=== PATIENT | male | born 1955 ===

== ENCOUNTER 2024-09-19 10:29 | Inpatient (IN) | payer MEDICARE, OTHER ==
[~2024-09-19] VITALS: Ht 188 cm; Wt 179.0 kg
[2024-09-19 12:04] LABS: BASOPHILS ABSOLUTE AUTO 0.11 K/mm3 (0.00-0.23); BASOPHILS PERCENT AUTO 1 % (0-2); EOSINOPHILS ABSOLUTE AUTO 0.05 K/mm3 (0.00-0.68); EOSINOPHILS PERCENT AUTO 0 % (0-6); Hematocrit 36.2 % (37.0-53.0); Hemoglobin 12.4 g/dL (13.5-17.5); IMMATURE GRAN ABSOLUTE AUTO 0.78 K/mm3 (0.00-0.10); IMMATURE GRAN PERCENT AUTO 4 % (0-1); LYMPHOCYTES ABSOLUTE AUTO 0.31 K/mm3 (0.84-5.20); LYMPHOCYTES PERCENT AUTO 2 % (21-46); MONOCYTES ABSOLUTE AUTO 0.55 K/mm3 (0.16-1.47); MONOCYTES PERCENT AUTO 3 % (4-13); Mean Corpuscular HGB 31.6 pg (26.0-34.0); Mean Corpuscular HGB Conc 34.3 g/dL (31.5-36.5); Mean Corpuscular Volume 92 fL (80-100); Mean Platelet Volume 11.1 fL (9.1-12.4); NEUTROPHILS ABSOLUTE AUTO 19.11 K/mm3 (1.96-9.15); NEUTROPHILS PERCENT AUTO 92 % (41-73); NRBC ABSOLUTE 0.02 K/mm3 (0.00-0.02); NRBC Auto 0.1 /100 WBC (0.0-0.2); Platelet Count 201 K/mm3 (150-400); RDW Coefficient Variation 13.2 % (11.7-14.2); RDW Standard Deviation 44.9 fL (35.1-46.3); Red Blood Cell Count 3.93 M/mm3 (4.30-5.90); White Blood Cell Count 20.91 K/mm3 (4.00-11.30)
[2024-09-19] MEDS ORDERED: Ketorolac Tromethamine 15mg Vial IV ONE (12:30)
[2024-09-19 12:36] LABS: BAND PERCENT MAN 8 % (0-8); BASOPHILS PERCENT MAN 0 % (0-2); EOSINOPHILS PERCENT MAN 0 % (0-6); LYMPHOCYTES PERCENT MAN 1 % (21-46); MONOCYTES ABSOLUTE MAN 0.62 K/mm3 (0.16-1.47); MONOCYTES PERCENT MAN 3 % (4-13); NEUTROPHILS ABSOLUTE MAN 20.07 K/mm3 (1.96-9.15); SEG NEUTROPHILS PERCENT MAN 88 % (41-73); TOTAL CELLS COUNTED 100
[2024-09-19 12:49] LABS: Albumin, Blood 2.4 g/dL (3.4-5.0); Albumin/Globulin Ratio 0.6 (0.8-1.8); Bilirubin, Total 0.6 mg/dL (0.1-1.0); Bun/Creatinine Ratio 28.1 (12.0-20.0); Calcium, Blood 9.6 mg/dL (8.5-10.1); Creatinine, Blood 1.78 mg/dL (0.60-1.20); Globulin, Blood 4.1 g/dL (2.2-4.0); Potassium, Blood 4.9 mmol/L (3.5-5.5); Total Protein, Blood 6.5 g/dL (6.4-8.2)
[2024-09-19] MEDS ORDERED: MOUNJARO15 MG/0.5 SC (13:28)
[2024-09-19] MEDS ORDERED: HUMALOG100 UNIT/1 SC (13:28)
[2024-09-19 13:42] LABS: Base Excess Venous -10.4 mmol/L; Bicarbonate Venous 17.2 mmol/L (24.0-30.0); PCO2 Venous 31.8 mmHg (38-42); pH Blood Venous 7.31 (7.34-7.37)
[2024-09-19] MEDS ORDERED: NS 1,000 ML IV SCH ×3 (14:30→15:55)
[2024-09-19] MEDS ORDERED: CefTRIAXone Sodium 1,000 MG in NS 100 ML IV ONE (14:30)
[2024-09-19] MEDS ORDERED: Insulin Human Regular 100 UNIT in NS 100 ML IV SCH (14:40)
[2024-09-19] MEDS ORDERED: Potassium Chl 20MEQ/Water100ML 100 ML IV SCH (14:40)
[2024-09-19] MEDS ORDERED: VANCOMYCIN HCL IV ONE (14:55)
[2024-09-19] MEDS ORDERED: NS IV ONE (14:55)
[2024-09-19] MEDS ORDERED: Ondansetron HCl 2 MG / ML 2ML Vial IV PRN (15:55)
[2024-09-19] MEDS ORDERED: TraMADol HCl 50 MG Tab PO PRN (15:55)
[2024-09-19] MEDS ORDERED: Ketorolac Tromethamine 30mg Vial IV PRN (16:00)
[2024-09-19 16:10] LABS: Glucose, Blood 501 mg/dL (70-99)
[2024-09-19] MEDS ORDERED: CeFAZolin Sodium 2,000 MG in NS 100 ML IV SCH (17:00)
[2024-09-19 18:11] LABS: Bun/Creatinine Ratio 31.6 (12.0-20.0); Calcium, Blood 9.1 mg/dL (8.5-10.1); Creatinine, Blood 1.74 mg/dL (0.60-1.20); Magnesium, Blood 2.4 mg/dL (1.6-2.4); Phosphorus, Blood 2.5 mg/dL (2.5-4.9); Potassium, Blood 4.1 mmol/L (3.5-5.5)
[2024-09-19 20:00] VITALS: BP 114/61
[2024-09-19 21:00] VITALS: BP 128/76
[2024-09-19 21:32] LABS: Bun/Creatinine Ratio 34.5 (12.0-20.0); Creatinine, Blood 1.65 mg/dL (0.60-1.20); Magnesium, Blood 2.4 mg/dL (1.6-2.4); Phosphorus, Blood 1.5 mg/dL (2.5-4.9)
[2024-09-19 22:00] VITALS: BP 128/78
[2024-09-19 23:00] VITALS: BP 125/67
[2024-09-20] VITALS (22 sets, daily range): BP systolic 97–232; BP diastolic 36–107
[2024-09-20] MEDS ORDERED: Metoprolol Tartrate 1 MG/ML 5 ML VIAL IV ONE
[2024-09-20] MEDS ORDERED: D5W-1/2NS KCl 20mEq 1,000 ML IV SCH
[2024-09-20 01:25] LABS: Base Excess Venous -1.3 mmol/L; Bicarbonate Venous 24.5 mmol/L (24.0-30.0); PCO2 Venous 25.3 mmHg (38-42); pH Blood Venous 7.53 (7.34-7.37)
[2024-09-20 01:33] LABS: Magnesium, Blood 2.3 mg/dL (1.6-2.4)
[2024-09-20 01:49] LABS: Bun/Creatinine Ratio 33.3 (12.0-20.0); Calcium, Blood 8.7 mg/dL (8.5-10.1); Creatinine, Blood 1.77 mg/dL (0.60-1.20); Phosphorus, Blood 0.9 mg/dL (2.5-4.9); Potassium, Blood 4.1 mmol/L (3.5-5.5)
[2024-09-20] MEDS ORDERED: D5W-1/2NS 1,000 ML IV SCH (02:00)
[2024-09-20] MEDS ORDERED: Potassium Phosphate Dibasic 30 MM in Dextrose 5% 500 ML IV ONE (02:00)
[2024-09-20 04:00] LABS: Hematocrit 36.5 % (37.0-53.0); Hemoglobin 12.9 g/dL (13.5-17.5); Mean Corpuscular HGB 31.8 pg (26.0-34.0); Mean Corpuscular HGB Conc 35.3 g/dL (31.5-36.5); Mean Corpuscular Volume 90 fL (80-100); Mean Platelet Volume 10.8 fL (9.1-12.4); NRBC ABSOLUTE 0.07 K/mm3 (0.00-0.02); NRBC Auto 0.3 /100 WBC (0.0-0.2); Platelet Count 179 K/mm3 (150-400); RDW Coefficient Variation 13.4 % (11.7-14.2); RDW Standard Deviation 44.4 fL (35.1-46.3); Red Blood Cell Count 4.06 M/mm3 (4.30-5.90); White Blood Cell Count 21.52 K/mm3 (4.00-11.30)
[2024-09-20] MEDS ORDERED: Ipratropium/Albuterol SulF 2.5-0.5MG/3 ML Amp INH PRN (04:05)
[2024-09-20 04:18] LABS: Albumin, Blood 2.1 g/dL (3.4-5.0); Albumin/Globulin Ratio 0.5 (0.8-1.8); Bilirubin, Total 0.3 mg/dL (0.1-1.0); Bun/Creatinine Ratio 33.7 (12.0-20.0); Calcium, Blood 9.1 mg/dL (8.5-10.1); Creatinine, Blood 1.84 mg/dL (0.60-1.20); Globulin, Blood 4.1 g/dL (2.2-4.0); Potassium, Blood 3.9 mmol/L (3.5-5.5); Total Protein, Blood 6.2 g/dL (6.4-8.2)
[2024-09-20 04:33] LABS: BAND PERCENT MAN 17 % (0-8); BASOPHILS PERCENT MAN 0 % (0-2); EOSINOPHILS PERCENT MAN 0 % (0-6); METAMYELOCYTE ABSOLUTE MAN 0.21 K/mm3 (0.00-0.00); METAMYELOCYTE PERCENT MAN 1 % (0-0); MONOCYTES ABSOLUTE MAN 0.21 K/mm3 (0.16-1.47); MONOCYTES PERCENT MAN 1 % (4-13); MYELOCYTE ABSOLUTE MAN 0.64 K/mm3 (0.00-0.00); MYELOCYTE PERCENT MAN 3 % (0-0); NEUTROPHILS ABSOLUTE MAN 20.44 K/mm3 (1.96-9.15); SEG NEUTROPHILS PERCENT MAN 78 % (41-73); TOTAL CELLS COUNTED 100
[2024-09-20] MEDS ORDERED: Lisinopril 10 MG Tab PO SCH (09:00)
[2024-09-20] MEDS ORDERED: Enoxaparin 40 MG/0.4 ML SYR SC SCH (09:00)
[2024-09-20] MEDS ORDERED: Ketorolac Tromethamine 30mg Vial IV PRN (09:30)
[2024-09-20 10:23] LABS: Anion Gap 14 mmol/L (3-11); Blood Urea Nitrogen 56 mg/dL (8-24); Bun/Creatinine Ratio 32.6 (12.0-20.0); C-REACTIVE PROTEIN, EXT RANGE >19.000 mg/dL (0.000-0.300); CO2, Blood 21 mmol/L (21-32); Calcium, Blood 8.6 mg/dL (8.5-10.1); Chloride, Blood 95 mmol/L (98-108); Creatinine, Blood 1.72 mg/dL (0.60-1.20); Glomerular Filtration Rate 43 (60-); Glucose, Blood 195 mg/dL (70-99); Potassium, Blood 4.2 mmol/L (3.5-5.5); Sodium, Blood 126 mmol/L (136-145)
[2024-09-20 10:59] LABS: Anti-Xa UFH, PHA Monitoring 0.1 IU/mL; International Normalized Ratio 1.07; Prothrombin Time Results 11.4 Sec (9.7-11.5)
[2024-09-20] MEDS ORDERED: OxyCODONE HCL 5 MG TAB PO PRN (11:00)
[2024-09-20] MEDS ORDERED: FentaNYL Citrate 50 MCG/ML 2 ML Injection IV PRN (11:00)
[2024-09-20] MEDS ORDERED: D5W-LR 1,000 ML IV SCH (11:00)
[2024-09-20] MEDS ORDERED: Heparin Sodium,Porcine/0.5 NS 500 ML IV SCH (11:10)
[2024-09-20] MEDS ORDERED: TRIA50 PO (13:22)
[2024-09-20] MEDS ORDERED: FENO48 PO (13:23)
[2024-09-20] MEDS ORDERED: METF500 PO (13:24)
[2024-09-20] MEDS ORDERED: Crestor40 MG PO (13:25)
[2024-09-20] MEDS ORDERED: AMLO10 PO (13:25)
[2024-09-20] MEDS ORDERED: LISI20 PO (13:28)
[2024-09-20] MEDS ORDERED: EUTHYROX125 MCG PO (13:29)
[2024-09-20] MEDS ORDERED: ASPI325 PO (13:29)
[2024-09-20] MEDS ORDERED: MULTI-VITAMIN1 EAC2 PO (13:31)
[2024-09-20] MEDS ORDERED: GLUCHON PO (13:34)
[2024-09-20] MEDS ORDERED: FISH OIL 1,4001 EAC2 PO (13:34)
[2024-09-20] MEDS ORDERED: DERMACINRX FOL PO (13:35)
[2024-09-20 16:36] LABS: Bun/Creatinine Ratio 30.8 (12.0-20.0); Calcium, Blood 9.5 mg/dL (8.5-10.1); Creatinine, Blood 1.82 mg/dL (0.60-1.20); Magnesium, Blood 2.2 mg/dL (1.6-2.4); Phosphorus, Blood 1.5 mg/dL (2.5-4.9); Potassium, Blood 3.8 mmol/L (3.5-5.5)
[2024-09-20] MEDS ORDERED: Lactobacil 2-S.Thermo-Bifido 1 1 Cap PO SCH (21:00)
[2024-09-20 23:20] LABS: Bun/Creatinine Ratio 34.1 (12.0-20.0); Creatinine, Blood 1.76 mg/dL (0.60-1.20); Potassium, Blood 3.4 mmol/L (3.5-5.5)
[2024-09-20] MEDS ORDERED: Potassium Chloride 40 MEQ in NS 250 ML IV ONE (23:25)
[2024-09-21] VITALS (29 sets, daily range): BP systolic 85–134; BP diastolic 44–101
[2024-09-21 01:16] LABS: RDW Coefficient Variation 14.2 % (11.7-14.2); Red Blood Cell Count 3.77 M/mm3 (4.30-5.90)
[2024-09-21 01:26] LABS: Hematocrit 33.9 % (37.0-53.0); Hemoglobin 11.7 g/dL (13.5-17.5); Mean Corpuscular HGB Conc 34.5 g/dL (31.5-36.5); Mean Corpuscular Volume 90 fL (80-100); Mean Platelet Volume 10.5 fL (9.1-12.4); NRBC ABSOLUTE 0.07 K/mm3 (0.00-0.02); NRBC Auto 0.3 /100 WBC (0.0-0.2); Platelet Count 147 K/mm3 (150-400); RDW Standard Deviation 47.4 fL (35.1-46.3); White Blood Cell Count 22.66 K/mm3 (4.00-11.30)
[2024-09-21 01:37] LABS: Albumin, Blood 1.6 g/dL (3.4-5.0); Albumin/Globulin Ratio 0.4 (0.8-1.8); Bilirubin, Total 0.3 mg/dL (0.1-1.0); Bun/Creatinine Ratio 33.9 (12.0-20.0); Creatinine, Blood 1.65 mg/dL (0.60-1.20); Globulin, Blood 3.8 g/dL (2.2-4.0); Potassium, Blood 3.6 mmol/L (3.5-5.5); Total Protein, Blood 5.4 g/dL (6.4-8.2)
[2024-09-21] MEDS ORDERED: Clarify Drug Order XX ONE (01:45)
[2024-09-21 01:52] LABS: BAND PERCENT MAN 12 % (0-8); BASOPHILS PERCENT MAN 0 % (0-2); EOSINOPHILS PERCENT MAN 0 % (0-6); LYMPHOCYTES ABSOLUTE MAN 0.45 K/mm3 (0.84-5.20); LYMPHOCYTES PERCENT MAN 2 % (21-46); METAMYELOCYTE ABSOLUTE MAN 0.45 K/mm3 (0.00-0.00); METAMYELOCYTE PERCENT MAN 2 % (0-0); MONOCYTES ABSOLUTE MAN 0.22 K/mm3 (0.16-1.47); MONOCYTES PERCENT MAN 1 % (4-13); MYELOCYTE PERCENT MAN 4 % (0-0); NEUTROPHILS ABSOLUTE MAN 20.62 K/mm3 (1.96-9.15); SEG NEUTROPHILS PERCENT MAN 79 % (41-73); TOTAL CELLS COUNTED 100
[2024-09-21 05:55] LABS: Bun/Creatinine Ratio 34.8 (12.0-20.0); Calcium, Blood 8.2 mg/dL (8.5-10.1); Creatinine, Blood 1.64 mg/dL (0.60-1.20); Potassium, Blood 3.6 mmol/L (3.5-5.5)
[2024-09-21] MEDS ORDERED: Potassium Chl 20MEQ/Water100ML 100 ML IV SCH (06:10)
[2024-09-21] MEDS ORDERED: Insulin Glargine-Yfgn 100 Unit/mL 3 ML SYR SC SCH (08:00)
[2024-09-21] MEDS ORDERED: Vancomycin HCL 2,500 MG in NS 500 ML IV ONE (08:10)
[2024-09-21] MEDS ORDERED: Sodium Bicarbonate 650 MG Tab PO SCH (09:00)
[2024-09-21] MEDS ORDERED: Mupirocin Calcium Oint 1 GM SCH (09:00)
[2024-09-21] MEDS ORDERED: Furosemide 10 MG/ML 4ML Vial IV SCH ×2 (09:00→18:00)
[2024-09-21] MEDS ORDERED: Insulin Regular 100 UNIT/ML 10ML Vial SC SCH (11:30)
[2024-09-21] MEDS ORDERED: OxyCODONE HCL 5 MG TAB PO PRN (11:45)
[2024-09-21] MEDS ORDERED: FentaNYL Citrate 50 MCG/ML 2 ML Injection IV PRN (11:45)
[2024-09-21 13:09] LABS: Bun/Creatinine Ratio 39.6 (12.0-20.0); Creatinine, Blood 1.54 mg/dL (0.60-1.20); Potassium, Blood 4.2 mmol/L (3.5-5.5)
[2024-09-21 17:00] LABS: Bun/Creatinine Ratio 36.3 (12.0-20.0); Calcium, Blood 7.8 mg/dL (8.5-10.1); Creatinine, Blood 1.71 mg/dL (0.60-1.20); Potassium, Blood 4.3 mmol/L (3.5-5.5)
[2024-09-21] MEDS ORDERED: D5W-LR 1,000 ML IV SCH (17:15)
[2024-09-21] MEDS ORDERED: Insulin Human Regular 100 UNIT in NS 100 ML IV SCH (17:25)
[2024-09-21] MEDS ORDERED: Albumin (Human) 25gm/100ml 100 ML IV SCH ×2 (18:00)
[2024-09-21 20:50] LABS: Beta-hydroxybutyrate 8.5 mg/dL (0.2-2.8); Bun/Creatinine Ratio 38.9 (12.0-20.0); Calcium, Blood 8.1 mg/dL (8.5-10.1); Creatinine, Blood 1.75 mg/dL (0.60-1.20); Magnesium, Blood 2.2 mg/dL (1.6-2.4); Phosphorus, Blood 3.1 mg/dL (2.5-4.9)
[2024-09-22] VITALS (78 sets, daily range): BP systolic 84–191; BP diastolic 43–107
[2024-09-22 00:42] LABS: Bun/Creatinine Ratio 38.4 (12.0-20.0); Calcium, Blood 7.9 mg/dL (8.5-10.1); Creatinine, Blood 1.85 mg/dL (0.60-1.20); Potassium, Blood 3.8 mmol/L (3.5-5.5)
[2024-09-22] MEDS ORDERED: Potassium Chloride 40 MEQ in NS 250 ML IV ONE (01:25)
[2024-09-22 03:43] LABS: Hemoglobin 10.6 g/dL (13.5-17.5); Mean Platelet Volume 10.8 fL (9.1-12.4); Platelet Count 170 K/mm3 (150-400)
[2024-09-22 04:03] LABS: Bun/Creatinine Ratio 39.7 (12.0-20.0); Creatinine, Blood 1.79 mg/dL (0.60-1.20); Magnesium, Blood 2.2 mg/dL (1.6-2.4); Phosphorus, Blood 2.6 mg/dL (2.5-4.9); Potassium, Blood 3.8 mmol/L (3.5-5.5)
[2024-09-22] MEDS ORDERED: Dose Adjust by Pharmacy XX STA ×3 (04:47→19:41)
[2024-09-22] MEDS ORDERED: Potassium Chl 20MEQ/Water100ML 100 ML IV SCH (04:50)
[2024-09-22 08:43] LABS: Calcium, Blood 8.2 mg/dL (8.5-10.1); Creatinine, Blood 1.79 mg/dL (0.60-1.20); Potassium, Blood 3.9 mmol/L (3.5-5.5)
[2024-09-22] MEDS ORDERED: Vancomycin HCL 1,750 MG in NS 500 ML IV SCH (09:00)
[2024-09-22] MEDS ORDERED: HYDROmorphone HCl/Pf 1MG SYR IV PRN (09:20)
[2024-09-22] MEDS ORDERED: Cefepime HCl 2,000 MG in NS 100 ML IV SCH (09:24)
[2024-09-22 11:59] LABS: Bun/Creatinine Ratio 40.5 (12.0-20.0); Calcium, Blood 8.3 mg/dL (8.5-10.1); Creatinine, Blood 1.68 mg/dL (0.60-1.20); Potassium, Blood 3.9 mmol/L (3.5-5.5)
[2024-09-22] MEDS ORDERED: Metolazone 2.5 MG Tab PO ONE (14:00)
[2024-09-22 17:24] LABS: Bun/Creatinine Ratio 40.4 (12.0-20.0); Calcium, Blood 8.2 mg/dL (8.5-10.1); Creatinine, Blood 1.71 mg/dL (0.60-1.20); Potassium, Blood 4.1 mmol/L (3.5-5.5)
[2024-09-22 17:40] LABS: Source, Urine Clean Catch
[2024-09-22 17:47] LABS: Appearance, Urine Clear (Clear); Bilirubin, Urine Neg (Neg); Blood, Urine 3+ (Neg); Glucose Qualitative, Urine Neg (Neg); Ketones, Urine Neg (Neg); Leukocyte Esterase, Urine Neg (Neg); Nitrite, Urine Neg (Neg); Protein, Urine Neg (Neg); Urobilinogen, Urine NORM (Normal)
[2024-09-22 17:57] LABS: Color, Urine Pale Yellow (P-Yellow)
[2024-09-22 18:00] LABS: White Blood Cells, Urine 0-2 /hpf (0-5)
[2024-09-22] MEDS ORDERED: Metolazone 2.5 MG Tab PO SCH (18:00)
[2024-09-22 18:01] LABS: Bacteria Few /hpf; Squamous Epithelial Cells Few /hpf (Few)
[2024-09-22 19:45] LABS: Bun/Creatinine Ratio 38.1 (12.0-20.0); Calcium, Blood 8.3 mg/dL (8.5-10.1); Creatinine, Blood 1.68 mg/dL (0.60-1.20); Potassium, Blood 3.9 mmol/L (3.5-5.5)
[2024-09-23] VITALS (26 sets, daily range): BP systolic 105–172; BP diastolic 50–140
[2024-09-23 00:34] LABS: Bun/Creatinine Ratio 44.7 (12.0-20.0); Calcium, Blood 8.1 mg/dL (8.5-10.1); Creatinine, Blood 1.59 mg/dL (0.60-1.20); Potassium, Blood 3.7 mmol/L (3.5-5.5)
[2024-09-23] MEDS ORDERED: Potassium Chloride 60 MEQ IV SCH (01:50)
[2024-09-23] MEDS ORDERED: Potassium Chl 20MEQ/Water100ML 100 ML IV SCH (02:00)
[2024-09-23] MEDS ORDERED: Dose Adjust by Pharmacy XX STA ×4 (02:49→23:34)
[2024-09-23 05:48] LABS: Hematocrit 31.5 % (37.0-53.0); Hemoglobin 10.8 g/dL (13.5-17.5)
[2024-09-23 06:13] LABS: Bun/Creatinine Ratio 42.7 (12.0-20.0); Calcium, Blood 8.2 mg/dL (8.5-10.1); Creatinine, Blood 1.57 mg/dL (0.60-1.20); Magnesium, Blood 2.3 mg/dL (1.6-2.4); Potassium, Blood 3.9 mmol/L (3.5-5.5)
[2024-09-23] MEDS ORDERED: D5W-LR 1,000 ML IV SCH (07:10)
[2024-09-23] MEDS ORDERED: Insulin Human Lispro 100 Units/ML 3ML Syringe SC SCH (07:30)
[2024-09-23] MEDS ORDERED: HYDROmorphone HCl/Pf 1MG SYR IV PRN (08:55)
[2024-09-23] MEDS ORDERED: Metolazone 5 MG Tab PO SCH (09:00)
[2024-09-23] MEDS ORDERED: Bumetanide 0.25 MG/ML 4ML ViaL IV SCH (09:00)
[2024-09-23 11:05] LABS: Base Excess Venous -9.1 mmol/L; Bicarbonate Venous 17.8 mmol/L (24.0-30.0); PCO2 Venous 33.3 mmHg (38-42); pH Blood Venous 7.32 (7.34-7.37)
[2024-09-23 11:13] LABS: Hematocrit 30.3 % (37.0-53.0); Hemoglobin 10.1 g/dL (13.5-17.5); Mean Corpuscular HGB 30.5 pg (26.0-34.0); Mean Corpuscular HGB Conc 33.3 g/dL (31.5-36.5); Mean Corpuscular Volume 92 fL (80-100); Mean Platelet Volume 11.2 fL (9.1-12.4); NRBC ABSOLUTE 0.06 K/mm3 (0.00-0.02); NRBC Auto 0.2 /100 WBC (0.0-0.2); Platelet Count 168 K/mm3 (150-400); RDW Coefficient Variation 15.5 % (11.7-14.2); RDW Standard Deviation 51.6 fL (35.1-46.3); Red Blood Cell Count 3.31 M/mm3 (4.30-5.90); White Blood Cell Count 37.22 K/mm3 (4.00-11.30)
[2024-09-23 11:14] LABS: BASOPHILS ABSOLUTE AUTO 0.04 K/mm3 (0.00-0.23); BASOPHILS PERCENT AUTO 0 % (0-2); EOSINOPHILS ABSOLUTE AUTO 0.45 K/mm3 (0.00-0.68); EOSINOPHILS PERCENT AUTO 1 % (0-6); IMMATURE GRAN ABSOLUTE AUTO 7.39 K/mm3 (0.00-0.10); IMMATURE GRAN PERCENT AUTO 20 % (0-1); LYMPHOCYTES ABSOLUTE AUTO 2.07 K/mm3 (0.84-5.20); LYMPHOCYTES PERCENT AUTO 6 % (21-46); MONOCYTES ABSOLUTE AUTO 1.01 K/mm3 (0.16-1.47); MONOCYTES PERCENT AUTO 3 % (4-13); NEUTROPHILS ABSOLUTE AUTO 26.26 K/mm3 (1.96-9.15); NEUTROPHILS PERCENT AUTO 71 % (41-73)
[2024-09-23 11:21] LABS: Bun/Creatinine Ratio 46.2 (12.0-20.0); Calcium, Blood 7.7 mg/dL (8.5-10.1); Creatinine, Blood 1.43 mg/dL (0.60-1.20); Magnesium, Blood 1.9 mg/dL (1.6-2.4)
[2024-09-23 11:52] LABS: BAND PERCENT MAN 3 % (0-8); BASOPHILS PERCENT MAN 0 % (0-2); EOSINOPHILS ABSOLUTE MAN 0.74 K/mm3 (0.00-0.68); EOSINOPHILS PERCENT MAN 2 % (0-6); LYMPHOCYTES ABSOLUTE MAN 1.48 K/mm3 (0.84-5.20); LYMPHOCYTES PERCENT MAN 4 % (21-46); METAMYELOCYTE ABSOLUTE MAN 2.23 K/mm3 (0.00-0.00); METAMYELOCYTE PERCENT MAN 6 % (0-0); MONOCYTES ABSOLUTE MAN 1.11 K/mm3 (0.16-1.47); MONOCYTES PERCENT MAN 3 % (4-13); MYELOCYTE ABSOLUTE MAN 1.86 K/mm3 (0.00-0.00); MYELOCYTE PERCENT MAN 5 % (0-0); NEUTROPHILS ABSOLUTE MAN 29.77 K/mm3 (1.96-9.15); SEG NEUTROPHILS PERCENT MAN 77 % (41-73); TOTAL CELLS COUNTED 100
[2024-09-23] MEDS ORDERED: HYDROcodone 7.5-APAP 325 TAB PO SCH (12:00)
[2024-09-23 16:20] LABS: Bun/Creatinine Ratio 41.1 (12.0-20.0); Calcium, Blood 8.2 mg/dL (8.5-10.1); Creatinine, Blood 1.58 mg/dL (0.60-1.20); Potassium, Blood 4.3 mmol/L (3.5-5.5)
[2024-09-23 16:21] LABS: C-REACTIVE PROTEIN, EXT RANGE 11.2 mg/dL (0.000-0.300)
[2024-09-23 16:35] LABS: D-Dimer, Quantitative 2.23 mg/L FEU (0.00-0.52); International Normalized Ratio 1.33; Prothrombin Time Results 13.9 Sec (9.7-11.5)
[2024-09-23] MEDS ORDERED: Meropenem 1,000 MG in NS 100 ML IV SCH (18:00)
[2024-09-23] MEDS ORDERED: Insulin Glargine-Yfgn 100 Unit/mL 3 ML SYR SC SCH (18:00)
[2024-09-23 20:40] LABS: Bun/Creatinine Ratio 39.6 (12.0-20.0); Creatinine, Blood 1.64 mg/dL (0.60-1.20); Potassium, Blood 3.8 mmol/L (3.5-5.5)
[2024-09-23 22:53] LABS: Bun/Creatinine Ratio 43.8 (12.0-20.0); Calcium, Blood 7.9 mg/dL (8.5-10.1); Creatinine, Blood 1.62 mg/dL (0.60-1.20); Potassium, Blood 3.8 mmol/L (3.5-5.5)
[2024-09-24] VITALS (13 sets, daily range): BP systolic 111–158; BP diastolic 54–87
[2024-09-24] MEDS ORDERED: Insulin Glargine-Yfgn 100 Unit/mL 3 ML SYR SC ONE (00:10)
[2024-09-24 03:19] LABS: Base Excess Venous -2.9 mmol/L; Bicarbonate Venous 22.6 mmol/L (24.0-30.0); PCO2 Venous 31.8 mmHg (38-42); pH Blood Venous 7.44 (7.34-7.37)
[2024-09-24 03:23] LABS: Hematocrit 30.3 % (37.0-53.0); Hemoglobin 10.4 g/dL (13.5-17.5); Mean Corpuscular HGB 31.1 pg (26.0-34.0); Mean Corpuscular HGB Conc 34.3 g/dL (31.5-36.5); Mean Corpuscular Volume 91 fL (80-100); Mean Platelet Volume 10.7 fL (9.1-12.4); NRBC ABSOLUTE 0.05 K/mm3 (0.00-0.02); NRBC Auto 0.1 /100 WBC (0.0-0.2); Platelet Count 223 K/mm3 (150-400); RDW Coefficient Variation 15.3 % (11.7-14.2); RDW Standard Deviation 50.4 fL (35.1-46.3); Red Blood Cell Count 3.34 M/mm3 (4.30-5.90); White Blood Cell Count 41.94 K/mm3 (4.00-11.30)
[2024-09-24 03:44] LABS: Albumin, Blood 2.1 g/dL (3.4-5.0); Albumin/Globulin Ratio 0.6 (0.8-1.8); Bilirubin, Total 0.7 mg/dL (0.1-1.0); Bun/Creatinine Ratio 46.5 (12.0-20.0); Calcium, Blood 7.9 mg/dL (8.5-10.1); Creatinine, Blood 1.55 mg/dL (0.60-1.20); Globulin, Blood 3.7 g/dL (2.2-4.0); Magnesium, Blood 1.8 mg/dL (1.6-2.4); Potassium, Blood 3.9 mmol/L (3.5-5.5); Total Protein, Blood 5.8 g/dL (6.4-8.2)
[2024-09-24 03:52] LABS: BAND PERCENT MAN 12 % (0-8); BASOPHILS ABSOLUTE MAN 0.41 K/mm3 (0.00-0.23); BASOPHILS PERCENT MAN 1 % (0-2); EOSINOPHILS ABSOLUTE MAN 0.41 K/mm3 (0.00-0.68); EOSINOPHILS PERCENT MAN 1 % (0-6); LYMPHOCYTES ABSOLUTE MAN 2.09 K/mm3 (0.84-5.20); LYMPHOCYTES PERCENT MAN 5 % (21-46); METAMYELOCYTE ABSOLUTE MAN 2.93 K/mm3 (0.00-0.00); METAMYELOCYTE PERCENT MAN 7 % (0-0); MONOCYTES ABSOLUTE MAN 1.25 K/mm3 (0.16-1.47); MONOCYTES PERCENT MAN 3 % (4-13); MYELOCYTE ABSOLUTE MAN 1.25 K/mm3 (0.00-0.00); MYELOCYTE PERCENT MAN 3 % (0-0); NEUTROPHILS ABSOLUTE MAN 33.55 K/mm3 (1.96-9.15); SEG NEUTROPHILS PERCENT MAN 68 % (41-73); TOTAL CELLS COUNTED 100
[2024-09-24] MEDS ORDERED: HydrALAZINE HCl 20 MG / ML 1ML Vial IV PRN (07:35)
[2024-09-24 08:35] LABS: Vancomycin, Trough 18.2 ug/mL (5.0-10.0)
[2024-09-24] MEDS ORDERED: Insulin Glargine-Yfgn 100 Unit/mL 3 ML SYR SC SCH (09:00)
[2024-09-24] MEDS ORDERED: Sodium Bicarbonate 650 MG Tab PO SCH (09:00)
[2024-09-24 10:36] LABS: Bun/Creatinine Ratio 49.4 (12.0-20.0); Calcium, Blood 7.6 mg/dL (8.5-10.1); Creatinine, Blood 1.6 mg/dL (0.60-1.20); Potassium, Blood 3.9 mmol/L (3.5-5.5)
[2024-09-24] MEDS ORDERED: Dose Adjust by Pharmacy XX STA (12:44)
[2024-09-24 14:13] LABS: Hematocrit 29.2 % (37.0-53.0); Hemoglobin 10.1 g/dL (13.5-17.5); Mean Corpuscular HGB 30.9 pg (26.0-34.0); Mean Corpuscular HGB Conc 34.6 g/dL (31.5-36.5); Mean Corpuscular Volume 89 fL (80-100); Mean Platelet Volume 10.7 fL (9.1-12.4); NRBC ABSOLUTE 0.04 K/mm3 (0.00-0.02); NRBC Auto 0.1 /100 WBC (0.0-0.2); Platelet Count 257 K/mm3 (150-400); RDW Standard Deviation 49.2 fL (35.1-46.3); Red Blood Cell Count 3.27 M/mm3 (4.30-5.90); White Blood Cell Count 38.22 K/mm3 (4.00-11.30)
[2024-09-24 14:33] LABS: Bun/Creatinine Ratio 48.3 (12.0-20.0); Calcium, Blood 7.9 mg/dL (8.5-10.1); Creatinine, Blood 1.51 mg/dL (0.60-1.20); Potassium, Blood 3.4 mmol/L (3.5-5.5)
[2024-09-24] MEDS ORDERED: Potassium Chloride 20 MEQ TabCR PO ONE (15:00)
[2024-09-24] MEDS ORDERED: Insulin Regular 100 UNIT/ML 10ML Vial SC SCH (16:30)
[2024-09-24] MEDS ORDERED: Insulin Regular 100 UNIT/ML 10ML Vial SC ONE (16:47)
[2024-09-25] VITALS (21 sets, daily range): BP systolic 93–136; BP diastolic 44–106
[2024-09-25 04:28] LABS: Hemoglobin 9.4 g/dL (13.5-17.5); Mean Corpuscular HGB 31.4 pg (26.0-34.0); Mean Corpuscular HGB Conc 34.8 g/dL (31.5-36.5); Mean Corpuscular Volume 90 fL (80-100); NRBC ABSOLUTE 0.07 K/mm3 (0.00-0.02); NRBC Auto 0.2 /100 WBC (0.0-0.2); Platelet Count 294 K/mm3 (150-400); RDW Standard Deviation 49.1 fL (35.1-46.3); Red Blood Cell Count 2.99 M/mm3 (4.30-5.90); White Blood Cell Count 42.29 K/mm3 (4.00-11.30)
[2024-09-25 04:52] LABS: Albumin, Blood 1.8 g/dL (3.4-5.0); Albumin/Globulin Ratio 0.5 (0.8-1.8); Bilirubin, Total 0.6 mg/dL (0.1-1.0); Bun/Creatinine Ratio 53.6 (12.0-20.0); Calcium, Blood 7.6 mg/dL (8.5-10.1); Creatinine, Blood 1.68 mg/dL (0.60-1.20); Globulin, Blood 3.9 g/dL (2.2-4.0); Magnesium, Blood 1.7 mg/dL (1.6-2.4); Phosphorus, Blood 3.3 mg/dL (2.5-4.9); Potassium, Blood 3.7 mmol/L (3.5-5.5); Total Protein, Blood 5.7 g/dL (6.4-8.2)
[2024-09-25 05:19] LABS: BAND PERCENT MAN 16 % (0-8); BASOPHILS ABSOLUTE MAN 0.42 K/mm3 (0.00-0.23); BASOPHILS PERCENT MAN 1 % (0-2); EOSINOPHILS PERCENT MAN 0 % (0-6); LYMPHOCYTES ABSOLUTE MAN 1.26 K/mm3 (0.84-5.20); LYMPHOCYTES PERCENT MAN 3 % (21-46); METAMYELOCYTE ABSOLUTE MAN 0.84 K/mm3 (0.00-0.00); METAMYELOCYTE PERCENT MAN 2 % (0-0); MONOCYTES ABSOLUTE MAN 2.11 K/mm3 (0.16-1.47); MONOCYTES PERCENT MAN 5 % (4-13); MYELOCYTE ABSOLUTE MAN 0.42 K/mm3 (0.00-0.00); MYELOCYTE PERCENT MAN 1 % (0-0); NEUTROPHILS ABSOLUTE MAN 37.21 K/mm3 (1.96-9.15); SEG NEUTROPHILS PERCENT MAN 72 % (41-73); TOTAL CELLS COUNTED 100
[2024-09-25] MEDS ORDERED: Dose Adjust by Pharmacy XX STA (05:22)
[2024-09-25] MEDS ORDERED: Mag Sulfate 1 GM/D5% 100ML 100 ML IV STA ×2 (07:46→13:54)
[2024-09-25] MEDS ORDERED: Bumetanide 0.25 MG/ML 4ML ViaL IV SCH (09:00)
[2024-09-25] MEDS ORDERED: Insulin Glargine-Yfgn 100 Unit/mL 3 ML SYR SC SCH (09:00)
[2024-09-25] MEDS ORDERED: Furosemide 10 MG/ML 4ML Vial IV SCH (09:00)
[2024-09-25] MEDS ORDERED: Alteplase Recombinant 2 MG / Vial IV ONE (09:25)
[2024-09-25 13:29] LABS: Bun/Creatinine Ratio 62.3 (12.0-20.0); Calcium, Blood 7.5 mg/dL (8.5-10.1); Creatinine, Blood 1.62 mg/dL (0.60-1.20); Potassium, Blood 3.6 mmol/L (3.5-5.5)
[2024-09-25 17:29] LABS: Calcium, Blood 7.7 mg/dL (8.5-10.1); Creatinine, Blood 1.64 mg/dL (0.60-1.20); Potassium, Blood 3.6 mmol/L (3.5-5.5)
[2024-09-25] MEDS ORDERED: Insulin Human Lispro 100 Units/ML 3ML Syringe SC SCH (17:30)
[2024-09-26] VITALS (22 sets, daily range): BP systolic 98–161; BP diastolic 52–120
[2024-09-26 04:40] LABS: Base Excess Venous 3.6 mmol/L; Bicarbonate Venous 26.9 mmol/L (24.0-30.0); PCO2 Venous 42.2 mmHg (38-42); pH Blood Venous 7.43 (7.34-7.37)
[2024-09-26 04:53] LABS: Hematocrit 24.8 % (37.0-53.0); Hemoglobin 8.5 g/dL (13.5-17.5); Mean Corpuscular HGB Conc 34.3 g/dL (31.5-36.5); Mean Corpuscular Volume 91 fL (80-100); Mean Platelet Volume 10.4 fL (9.1-12.4); NRBC ABSOLUTE 0.14 K/mm3 (0.00-0.02); NRBC Auto 0.4 /100 WBC (0.0-0.2); Platelet Count 341 K/mm3 (150-400); RDW Coefficient Variation 15.2 % (11.7-14.2); RDW Standard Deviation 49.6 fL (35.1-46.3); Red Blood Cell Count 2.74 M/mm3 (4.30-5.90); White Blood Cell Count 37.65 K/mm3 (4.00-11.30)
[2024-09-26 05:14] LABS: BAND PERCENT MAN 13 % (0-8); BASOPHILS PERCENT MAN 0 % (0-2); EOSINOPHILS PERCENT MAN 0 % (0-6); LYMPHOCYTES ABSOLUTE MAN 1.12 K/mm3 (0.84-5.20); LYMPHOCYTES PERCENT MAN 3 % (21-46); METAMYELOCYTE PERCENT MAN 4 % (0-0); MONOCYTES PERCENT MAN 4 % (4-13); MYELOCYTE ABSOLUTE MAN 1.12 K/mm3 (0.00-0.00); MYELOCYTE PERCENT MAN 3 % (0-0); NEUTROPHILS ABSOLUTE MAN 32.37 K/mm3 (1.96-9.15); SEG NEUTROPHILS PERCENT MAN 73 % (41-73); TOTAL CELLS COUNTED 100
[2024-09-26 05:16] LABS: Albumin, Blood 1.8 g/dL (3.4-5.0); Albumin/Globulin Ratio 0.5 (0.8-1.8); Bilirubin, Total 0.4 mg/dL (0.1-1.0); Bun/Creatinine Ratio 62.7 (12.0-20.0); Calcium, Blood 7.6 mg/dL (8.5-10.1); Creatinine, Blood 1.61 mg/dL (0.60-1.20); Globulin, Blood 3.9 g/dL (2.2-4.0); Phosphorus, Blood 3.8 mg/dL (2.5-4.9); Potassium, Blood 3.4 mmol/L (3.5-5.5); Total Protein, Blood 5.7 g/dL (6.4-8.2)
[2024-09-26] MEDS ORDERED: Potassium Chloride 40 MEQ in NS 250 ML IV ONE (06:00)
[2024-09-26 08:42] LABS: Vancomycin, Trough 22.3 ug/mL (5.0-10.0)
[2024-09-26] MEDS ORDERED: Metolazone 2.5 MG Tab PO SCH (09:00)
[2024-09-26] MEDS ORDERED: Bumetanide 0.25 MG/ML 4ML ViaL IV SCH (09:00)
[2024-09-26 11:46] LABS: Base Excess Venous 1.5 mmol/L; Bicarbonate Venous 25.6 mmol/L (24.0-30.0); Hematocrit 24.7 % (37.0-53.0); Hemoglobin 8.5 g/dL (13.5-17.5); PCO2 Venous 43.8 mmHg (38-42); pH Blood Venous 7.39 (7.34-7.37)
[2024-09-26 12:08] LABS: C-REACTIVE PROTEIN, EXT RANGE 6.05 mg/dL (0.000-0.300); Calcium, Blood 7.7 mg/dL (8.5-10.1); Creatinine, Blood 1.54 mg/dL (0.60-1.20); Potassium, Blood 3.7 mmol/L (3.5-5.5)
[2024-09-26] MEDS ORDERED: Vancomycin HCL 2,000 MG in NS 500 ML IV SCH (16:00)
[2024-09-26 17:05] LABS: Bun/Creatinine Ratio 66.7 (12.0-20.0); Calcium, Blood 6.1 mg/dL (8.5-10.1); Creatinine, Blood 1.23 mg/dL (0.60-1.20)
[2024-09-26] MEDS ORDERED: Potassium Chloride 20 MEQ TabCR PO ONE (17:55)
[2024-09-26] MEDS ORDERED: Potassium Chloride 20 MEQ TabCR PO SCH (19:00)
[2024-09-27] VITALS (12 sets, daily range): BP systolic 97–162; BP diastolic 54–139
[2024-09-27 04:34] LABS: Hematocrit 24.5 % (37.0-53.0); Hemoglobin 8.2 g/dL (13.5-17.5); Mean Corpuscular HGB 30.6 pg (26.0-34.0); Mean Corpuscular HGB Conc 33.5 g/dL (31.5-36.5); Mean Corpuscular Volume 91 fL (80-100); Mean Platelet Volume 10.4 fL (9.1-12.4); NRBC ABSOLUTE 0.21 K/mm3 (0.00-0.02); NRBC Auto 0.7 /100 WBC (0.0-0.2); Platelet Count 382 K/mm3 (150-400); RDW Coefficient Variation 15.6 % (11.7-14.2); RDW Standard Deviation 51.4 fL (35.1-46.3); Red Blood Cell Count 2.68 M/mm3 (4.30-5.90); White Blood Cell Count 29.39 K/mm3 (4.00-11.30)
[2024-09-27] MEDS ORDERED: Dose Adjust by Pharmacy XX STA (04:51)
[2024-09-27 04:56] LABS: Albumin, Blood 1.9 g/dL (3.4-5.0); Albumin/Globulin Ratio 0.5 (0.8-1.8); Bilirubin, Total 0.4 mg/dL (0.1-1.0); Bun/Creatinine Ratio 64.5 (12.0-20.0); Calcium, Blood 7.9 mg/dL (8.5-10.1); Creatinine, Blood 1.55 mg/dL (0.60-1.20); Globulin, Blood 4.2 g/dL (2.2-4.0); Magnesium, Blood 1.9 mg/dL (1.6-2.4); Phosphorus, Blood 4.5 mg/dL (2.5-4.9); Potassium, Blood 3.8 mmol/L (3.5-5.5); Total Protein, Blood 6.1 g/dL (6.4-8.2)
[2024-09-27 05:19] LABS: BAND PERCENT MAN 13 % (0-8); BASOPHILS PERCENT MAN 0 % (0-2); EOSINOPHILS ABSOLUTE MAN 0.29 K/mm3 (0.00-0.68); EOSINOPHILS PERCENT MAN 1 % (0-6); LYMPHOCYTES ABSOLUTE MAN 0.88 K/mm3 (0.84-5.20); LYMPHOCYTES PERCENT MAN 3 % (21-46); METAMYELOCYTE ABSOLUTE MAN 2.35 K/mm3 (0.00-0.00); METAMYELOCYTE PERCENT MAN 8 % (0-0); MONOCYTES ABSOLUTE MAN 3.23 K/mm3 (0.16-1.47); MONOCYTES PERCENT MAN 11 % (4-13); MYELOCYTE ABSOLUTE MAN 1.17 K/mm3 (0.00-0.00); MYELOCYTE PERCENT MAN 4 % (0-0); NEUTROPHILS ABSOLUTE MAN 21.45 K/mm3 (1.96-9.15); SEG NEUTROPHILS PERCENT MAN 60 % (41-73); TOTAL CELLS COUNTED 100
[2024-09-27] MEDS ORDERED: Apixaban 5 MG Tab PO SCH (09:00)
[2024-09-27] MEDS ORDERED: Bumetanide 0.25 MG/ML 4ML ViaL IV SCH (09:00)
[2024-09-27] MEDS ORDERED: Metolazone 5 MG Tab PO SCH (09:00)
[2024-09-27 13:01] LABS: Bun/Creatinine Ratio 61.1 (12.0-20.0); Calcium, Blood 7.7 mg/dL (8.5-10.1); Creatinine, Blood 1.57 mg/dL (0.60-1.20)
[2024-09-27 14:22] LABS: Stool Occult Blood Guaiac 1 Pos (Neg)
[2024-09-27 17:26] LABS: Calcium, Blood 7.8 mg/dL (8.5-10.1); Creatinine, Blood 1.72 mg/dL (0.60-1.20)
[2024-09-28] VITALS (75 sets, daily range): BP systolic 79–146; BP diastolic 24–121
[2024-09-28 04:22] LABS: Mean Corpuscular HGB 30.7 pg (26.0-34.0); Mean Corpuscular HGB Conc 32.6 g/dL (31.5-36.5); Mean Corpuscular Volume 94 fL (80-100); Mean Platelet Volume 10.6 fL (9.1-12.4); NRBC ABSOLUTE 0.33 K/mm3 (0.00-0.02); NRBC Auto 1.6 /100 WBC (0.0-0.2); Platelet Count 355 K/mm3 (150-400); RDW Standard Deviation 51.7 fL (35.1-46.3); Red Blood Cell Count 1.89 M/mm3 (4.30-5.90); White Blood Cell Count 20.01 K/mm3 (4.00-11.30)
[2024-09-28 04:40] LABS: Hematocrit 17.8 % (37.0-53.0); Hemoglobin 5.8 g/dL (13.5-17.5)
[2024-09-28 04:41] LABS: Albumin, Blood 1.6 g/dL (3.4-5.0); Albumin/Globulin Ratio 0.4 (0.8-1.8); Bilirubin, Total 0.3 mg/dL (0.1-1.0); Bun/Creatinine Ratio 62.6 (12.0-20.0); Calcium, Blood 7.2 mg/dL (8.5-10.1); Creatinine, Blood 1.95 mg/dL (0.60-1.20); Globulin, Blood 3.9 g/dL (2.2-4.0); Magnesium, Blood 1.9 mg/dL (1.6-2.4); Potassium, Blood 4.2 mmol/L (3.5-5.5); Total Protein, Blood 5.5 g/dL (6.4-8.2)
[2024-09-28 04:50] LABS: BAND PERCENT MAN 8 % (0-8); BASOPHILS PERCENT MAN 0 % (0-2); EOSINOPHILS PERCENT MAN 0 % (0-6); LYMPHOCYTES PERCENT MAN 4 % (21-46); METAMYELOCYTE PERCENT MAN 1 % (0-0); MONOCYTES PERCENT MAN 6 % (4-13); MYELOCYTE PERCENT MAN 2 % (0-0); SEG NEUTROPHILS PERCENT MAN 79 % (41-73); TOTAL CELLS COUNTED 100
[2024-09-28] MEDS ORDERED: NS 250 ML IV PRN (07:35)
[2024-09-28] MEDS ORDERED: HYDROmorphone HCl/Pf 1MG SYR IV PRN (08:20)
[2024-09-28] MEDS ORDERED: Pantoprazole Sodium 40 MG Injection IV SCH (11:00)
[2024-09-28 11:48] LABS: Hematocrit 21.2 % (37.0-53.0); Hemoglobin 6.9 g/dL (13.5-17.5)
[2024-09-28] MEDS ORDERED: propofoL 20 ML IV ONE (12:29)
[2024-09-28] MEDS ORDERED: SuccINYLCHOLINE Chloride 100 MG/5 ML 5MLSYR ONE (12:35)
[2024-09-28] MEDS ORDERED: Lactated Ringer's 1,000 ML IV SCH (12:40)
[2024-09-28] MEDS ORDERED: FentaNYL Citrate 50 MCG/ML 2 ML Injection IV PRN ×2 (13:40)
[2024-09-28] MEDS ORDERED: Ondansetron HCl 2 MG / ML 2ML Vial IV PRN (13:45)
[2024-09-28] MEDS ORDERED: Midodrine 5 MG Tab PO SCH (14:10)
[2024-09-28 15:06] LABS: Hematocrit 20.6 % (37.0-53.0); Hemoglobin 6.8 g/dL (13.5-17.5)
[2024-09-28 16:36] LABS: Bun/Creatinine Ratio 51.7 (12.0-20.0); Calcium, Blood 7.2 mg/dL (8.5-10.1); Creatinine, Blood 2.42 mg/dL (0.60-1.20); Potassium, Blood 4.7 mmol/L (3.5-5.5)
[2024-09-28 16:39] LABS: Vancomycin, Trough 21.2 ug/mL (5.0-10.0)
[2024-09-28] MEDS ORDERED: CALCIUM GLUC IN NACL, ISO-OSM 50 ML IV ONE (17:25)
[2024-09-28] MEDS ORDERED: DiphenhydrAMINE HCl 50 MG/ML 1ML Vial IV ONE (17:30)
[2024-09-28] MEDS ORDERED: HYDROcodone 7.5-APAP 325 TAB PO ONE (17:40)
[2024-09-28] MEDS ORDERED: Acetaminophen 325 MG TABLET PO ONE (17:50)
[2024-09-28] MEDS ORDERED: Bumetanide 0.25 MG/ML 10ML Vial IV ONE (18:30)
[2024-09-28] MEDS ORDERED: NS 500 ML IV ONE ×2 (21:12→21:15)
[2024-09-28 21:49] LABS: Hematocrit 20.8 % (37.0-53.0)
[2024-09-28 22:25] LABS: Bun/Creatinine Ratio 51.8 (12.0-20.0); Calcium, Blood 7.2 mg/dL (8.5-10.1); Creatinine, Blood 2.49 mg/dL (0.60-1.20); Potassium, Blood 4.5 mmol/L (3.5-5.5)
[2024-09-29] VITALS (25 sets, daily range): BP systolic 86–172; BP diastolic 51–97
[2024-09-29 03:46] LABS: Hematocrit 23.4 % (37.0-53.0); Hemoglobin 7.9 g/dL (13.5-17.5); Mean Corpuscular HGB 31.1 pg (26.0-34.0); Mean Corpuscular HGB Conc 33.8 g/dL (31.5-36.5); Mean Corpuscular Volume 92 fL (80-100); Mean Platelet Volume 10.1 fL (9.1-12.4); NRBC ABSOLUTE 0.22 K/mm3 (0.00-0.02); NRBC Auto 1.2 /100 WBC (0.0-0.2); Platelet Count 357 K/mm3 (150-400); RDW Coefficient Variation 16.3 % (11.7-14.2); RDW Standard Deviation 52.9 fL (35.1-46.3); Red Blood Cell Count 2.54 M/mm3 (4.30-5.90); White Blood Cell Count 18.94 K/mm3 (4.00-11.30)
[2024-09-29 04:23] LABS: Alanine Aminotransfer (ALT/SGP 13 U/L (12-78); Albumin, Blood 1.8 g/dL (3.4-5.0); Albumin/Globulin Ratio 0.5 (0.8-1.8); Alk Phos 60 U/L (50-136); Anion Gap 14 mmol/L (3-11); Aspartate Aminotrans (AST/SGOT 32 U/L (12-37); Bilirubin, Total 0.4 mg/dL (0.1-1.0); Blood Urea Nitrogen 121 mg/dL (8-24); CO2, Blood 24 mmol/L (21-32); Calcium, Blood 7.4 mg/dL (8.5-10.1); Chloride, Blood 99 mmol/L (98-108); Creatinine, Blood 2.16 mg/dL (0.60-1.20); Globulin, Blood 3.9 g/dL (2.2-4.0); Glomerular Filtration Rate 32 (60-); Glucose, Blood 105 mg/dL (70-99); Phosphorus, Blood 5.7 mg/dL (2.5-4.9); Potassium, Blood 3.8 mmol/L (3.5-5.5); Sodium, Blood 133 mmol/L (136-145); Total Protein, Blood 5.7 g/dL (6.4-8.2); Vancomycin, Random 19.8 ug/mL
[2024-09-29] MEDS ORDERED: Calcium Gluconate 10% 1,000 MG in NS 50 ML IV ONE (06:00)
[2024-09-29] MEDS ORDERED: Vancomycin HCL 1,500 MG in NS 250 ML IV ONE (07:30)
[2024-09-29] MEDS ORDERED: DiphenhydrAMINE HCl 50 MG/ML 1ML Vial IV ONE (08:45)
[2024-09-29] MEDS ORDERED: Bumetanide 0.25 MG/ML 4ML ViaL IV SCH (09:00)
[2024-09-29] MEDS ORDERED: Metolazone 2.5 MG Tab PO SCH (09:00)
[2024-09-29 09:49] LABS: Base Excess Venous 0.9 mmol/L; Bicarbonate Venous 25.1 mmol/L (24.0-30.0); PCO2 Venous 41.9 mmHg (38-42)
[2024-09-29] MEDS ORDERED: DiphenhydrAMINE HCl 50 MG/ML 1ML Vial IV PRN (10:10)
[2024-09-29] MEDS ORDERED: Dyazide 37.5/251 EA PO (11:27)
[2024-09-29] MEDS ORDERED: Midodrine 5 MG Tab PO PRN (12:41)
[2024-09-29 14:35] LABS: Hematocrit 25.4 % (37.0-53.0); Hemoglobin 8.5 g/dL (13.5-17.5)
[2024-09-29 15:13] LABS: Bun/Creatinine Ratio 59.5 (12.0-20.0); Creatinine, Blood 1.95 mg/dL (0.60-1.20)
[2024-09-30] VITALS (8 sets, daily range): BP systolic 113–136; BP diastolic 42–82
[2024-09-30 04:17] LABS: Hematocrit 24.5 % (37.0-53.0); Mean Corpuscular HGB 30.8 pg (26.0-34.0); Mean Corpuscular HGB Conc 32.7 g/dL (31.5-36.5); Mean Corpuscular Volume 94 fL (80-100); NRBC ABSOLUTE 0.09 K/mm3 (0.00-0.02); NRBC Auto 0.6 /100 WBC (0.0-0.2); Platelet Count 386 K/mm3 (150-400); RDW Coefficient Variation 16.4 % (11.7-14.2); RDW Standard Deviation 54.4 fL (35.1-46.3)
[2024-09-30 04:44] LABS: Alanine Aminotransfer (ALT/SGP 15 U/L (12-78); Albumin/Globulin Ratio 0.5 (0.8-1.8); Alk Phos 71 U/L (50-136); Anion Gap 11 mmol/L (3-11); Aspartate Aminotrans (AST/SGOT 33 U/L (12-37); Bilirubin, Total 0.5 mg/dL (0.1-1.0); Blood Urea Nitrogen 112 mg/dL (8-24); Bun/Creatinine Ratio 60.9 (12.0-20.0); CO2, Blood 30 mmol/L (21-32); Calcium, Blood 8.3 mg/dL (8.5-10.1); Chloride, Blood 98 mmol/L (98-108); Creatinine, Blood 1.84 mg/dL (0.60-1.20); Globulin, Blood 4.4 g/dL (2.2-4.0); Glomerular Filtration Rate 39 (60-); Glucose, Blood 120 mg/dL (70-99); Phosphorus, Blood 5.9 mg/dL (2.5-4.9); Potassium, Blood 3.6 mmol/L (3.5-5.5); Sodium, Blood 135 mmol/L (136-145); Total Protein, Blood 6.4 g/dL (6.4-8.2); Vancomycin, Random 26.2 ug/mL
[2024-09-30 05:19] LABS: BAND PERCENT MAN 1 % (0-8); BASOPHILS PERCENT MAN 0 % (0-2); EOSINOPHILS ABSOLUTE MAN 0.14 K/mm3 (0.00-0.68); EOSINOPHILS PERCENT MAN 1 % (0-6); LYMPHOCYTES ABSOLUTE MAN 0.58 K/mm3 (0.84-5.20); LYMPHOCYTES PERCENT MAN 4 % (21-46); METAMYELOCYTE ABSOLUTE MAN 0.29 K/mm3 (0.00-0.00); METAMYELOCYTE PERCENT MAN 2 % (0-0); MONOCYTES ABSOLUTE MAN 0.43 K/mm3 (0.16-1.47); MONOCYTES PERCENT MAN 3 % (4-13); MYELOCYTE ABSOLUTE MAN 0.29 K/mm3 (0.00-0.00); MYELOCYTE PERCENT MAN 2 % (0-0); NEUTROPHILS ABSOLUTE MAN 12.84 K/mm3 (1.96-9.15); SEG NEUTROPHILS PERCENT MAN 87 % (41-73); TOTAL CELLS COUNTED 100
[2024-09-30] MEDS ORDERED: CALCIUM GLUC IN NACL, ISO-OSM 50 ML IV ONE (10:05)
[2024-09-30] MEDS ORDERED: Acyclovir 400 MG Tab PO ONE (11:00)
[2024-09-30] MEDS ORDERED: Acyclovir 400 MG Tab PO SCH (15:00)
[2024-09-30] MEDS ORDERED: Vancomycin HCL 1,750 MG in NS 500 ML IV SCH (21:00)
[2024-10-01 03:28] VITALS: BP 132/64
[2024-10-01 03:42] LABS: Hemoglobin 7.7 g/dL (13.5-17.5); Mean Corpuscular HGB 31.2 pg (26.0-34.0); Mean Corpuscular HGB Conc 32.1 g/dL (31.5-36.5); Mean Corpuscular Volume 97 fL (80-100); NRBC ABSOLUTE 0.03 K/mm3 (0.00-0.02); NRBC Auto 0.3 /100 WBC (0.0-0.2); Platelet Count 383 K/mm3 (150-400); RDW Coefficient Variation 16.2 % (11.7-14.2); RDW Standard Deviation 55.6 fL (35.1-46.3); Red Blood Cell Count 2.47 M/mm3 (4.30-5.90); White Blood Cell Count 10.13 K/mm3 (4.00-11.30)
[2024-10-01 04:05] LABS: Bun/Creatinine Ratio 60.6 (12.0-20.0); Calcium, Blood 8.3 mg/dL (8.5-10.1); Creatinine, Blood 1.75 mg/dL (0.60-1.20); Potassium, Blood 3.3 mmol/L (3.5-5.5)
[2024-10-01 04:30] LABS: BAND PERCENT MAN 3 % (0-8); BASOPHILS PERCENT MAN 0 % (0-2); EOSINOPHILS PERCENT MAN 3 % (0-6); LYMPHOCYTES PERCENT MAN 3 % (21-46); MONOCYTES PERCENT MAN 4 % (4-13); MYELOCYTE PERCENT MAN 1 % (0-0); NEUTROPHILS ABSOLUTE MAN 9.01 K/mm3 (1.96-9.15); SEG NEUTROPHILS PERCENT MAN 86 % (41-73); TOTAL CELLS COUNTED 100
[2024-10-01] MEDS ORDERED: Potassium Chloride 40 MEQ in NS 250 ML IV ONE (04:45)
[2024-10-01 07:21] VITALS: BP 129/60
[2024-10-01 16:22] VITALS: BP 129/60
[2024-10-01] MEDS ORDERED: PENICILLIN POTASSIUM IV SCH (20:00)
[2024-10-01] MEDS ORDERED: DEXTROSE 5% IV SCH (20:00)
[2024-10-01 20:16] VITALS: BP 125/64
[2024-10-01] MEDS ORDERED: Protein Supplement 30 ML UD PO SCH (21:00)
[2024-10-01 23:27] VITALS: BP 114/62
[2024-10-02 01:29] VITALS: BP 114/58
[2024-10-02 04:30] VITALS: BP 133/75
[2024-10-02 05:02] LABS: BASOPHILS ABSOLUTE AUTO 0.04 K/mm3 (0.00-0.23); BASOPHILS PERCENT AUTO 1 % (0-2); EOSINOPHILS ABSOLUTE AUTO 0.23 K/mm3 (0.00-0.68); EOSINOPHILS PERCENT AUTO 3 % (0-6); Hematocrit 24.4 % (37.0-53.0); Hemoglobin 7.8 g/dL (13.5-17.5); IMMATURE GRAN ABSOLUTE AUTO 0.34 K/mm3 (0.00-0.10); IMMATURE GRAN PERCENT AUTO 4 % (0-1); LYMPHOCYTES ABSOLUTE AUTO 1.26 K/mm3 (0.84-5.20); LYMPHOCYTES PERCENT AUTO 15 % (21-46); MONOCYTES ABSOLUTE AUTO 0.73 K/mm3 (0.16-1.47); MONOCYTES PERCENT AUTO 9 % (4-13); Mean Corpuscular HGB 31.3 pg (26.0-34.0); Mean Corpuscular Volume 98 fL (80-100); Mean Platelet Volume 9.9 fL (9.1-12.4); NEUTROPHILS ABSOLUTE AUTO 5.86 K/mm3 (1.96-9.15); NEUTROPHILS PERCENT AUTO 69 % (41-73); Platelet Count 373 K/mm3 (150-400); RDW Coefficient Variation 15.7 % (11.7-14.2); Red Blood Cell Count 2.49 M/mm3 (4.30-5.90); White Blood Cell Count 8.46 K/mm3 (4.00-11.30)
[2024-10-02 05:37] LABS: Albumin, Blood 2.1 g/dL (3.4-5.0); Albumin/Globulin Ratio 0.5 (0.8-1.8); Bilirubin, Total 0.4 mg/dL (0.1-1.0); Bun/Creatinine Ratio 53.8 (12.0-20.0); Calcium, Blood 8.3 mg/dL (8.5-10.1); Creatinine, Blood 1.73 mg/dL (0.60-1.20); Globulin, Blood 4.6 g/dL (2.2-4.0); Potassium, Blood 3.1 mmol/L (3.5-5.5); Total Protein, Blood 6.7 g/dL (6.4-8.2)
[2024-10-02 07:40] VITALS: BP 145/72
[2024-10-02] MEDS ORDERED: Bumetanide 1 MG Tab PO SCH (09:00)
[2024-10-02] MEDS ORDERED: Potassium Chloride 20 MEQ TabCR PO ONE (09:00)
[2024-10-02 12:00] VITALS: BP 109/53
[2024-10-02 16:06] VITALS: BP 123/56
[2024-10-02] MEDS ORDERED: Potassium Chloride 20 MEQ TabCR PO SCH (17:00)
[2024-10-02 20:12] VITALS: BP 109/55
[2024-10-02] MEDS ORDERED: Oxymetazoline 0.05% Nasal Relief Spray 15mL BTL SCH (21:00)
[2024-10-03 02:48] VITALS: BP 99/52
[2024-10-03 05:00] LABS: BASOPHILS ABSOLUTE AUTO 0.01 K/mm3 (0.00-0.23); BASOPHILS PERCENT AUTO 0 % (0-2); EOSINOPHILS ABSOLUTE AUTO 0.22 K/mm3 (0.00-0.68); EOSINOPHILS PERCENT AUTO 3 % (0-6); Hemoglobin 6.9 g/dL (13.5-17.5); IMMATURE GRAN ABSOLUTE AUTO 0.19 K/mm3 (0.00-0.10); IMMATURE GRAN PERCENT AUTO 3 % (0-1); LYMPHOCYTES ABSOLUTE AUTO 1.01 K/mm3 (0.84-5.20); LYMPHOCYTES PERCENT AUTO 13 % (21-46); MONOCYTES ABSOLUTE AUTO 0.66 K/mm3 (0.16-1.47); MONOCYTES PERCENT AUTO 9 % (4-13); Mean Corpuscular HGB 30.3 pg (26.0-34.0); Mean Corpuscular HGB Conc 31.4 g/dL (31.5-36.5); Mean Corpuscular Volume 97 fL (80-100); Mean Platelet Volume 9.4 fL (9.1-12.4); NEUTROPHILS ABSOLUTE AUTO 5.53 K/mm3 (1.96-9.15); NEUTROPHILS PERCENT AUTO 73 % (41-73); Platelet Count 342 K/mm3 (150-400); RDW Coefficient Variation 15.2 % (11.7-14.2); Red Blood Cell Count 2.28 M/mm3 (4.30-5.90); White Blood Cell Count 7.62 K/mm3 (4.00-11.30)
[2024-10-03 05:17] LABS: Bun/Creatinine Ratio 47.9 (12.0-20.0); Calcium, Blood 7.6 mg/dL (8.5-10.1); Creatinine, Blood 1.65 mg/dL (0.60-1.20); Potassium, Blood 3.2 mmol/L (3.5-5.5)
[2024-10-03] MEDS ORDERED: Potassium Chloride 20 MEQ TabCR PO ONE (08:00)
[2024-10-03 08:02] VITALS: BP 96/52
[2024-10-03 16:41] VITALS: BP 104/50
[2024-10-03 20:41] VITALS: BP 110/47
[2024-10-03 23:18] LABS: Hematocrit 21.7 % (37.0-53.0); Hemoglobin 6.8 g/dL (13.5-17.5)
[2024-10-04] VITALS (9 sets, daily range): BP systolic 103–154; BP diastolic 57–77
[2024-10-04 05:24] LABS: VARICELLA-ZOSTER VIRUS BY PCR Not Detected; VARICELLA-ZOSTER VIRUS SOURCE Lesion Swab
[2024-10-04 06:54] LABS: BASOPHILS ABSOLUTE AUTO 0.02 K/mm3 (0.00-0.23); BASOPHILS PERCENT AUTO 0 % (0-2); EOSINOPHILS ABSOLUTE AUTO 0.25 K/mm3 (0.00-0.68); EOSINOPHILS PERCENT AUTO 3 % (0-6); Hematocrit 22.7 % (37.0-53.0); IMMATURE GRAN ABSOLUTE AUTO 0.22 K/mm3 (0.00-0.10); IMMATURE GRAN PERCENT AUTO 3 % (0-1); LYMPHOCYTES ABSOLUTE AUTO 1.26 K/mm3 (0.84-5.20); LYMPHOCYTES PERCENT AUTO 15 % (21-46); MONOCYTES PERCENT AUTO 10 % (4-13); Mean Corpuscular HGB 30.3 pg (26.0-34.0); Mean Corpuscular HGB Conc 30.8 g/dL (31.5-36.5); Mean Corpuscular Volume 98 fL (80-100); Mean Platelet Volume 9.5 fL (9.1-12.4); NEUTROPHILS ABSOLUTE AUTO 5.73 K/mm3 (1.96-9.15); NEUTROPHILS PERCENT AUTO 69 % (41-73); Platelet Count 384 K/mm3 (150-400); RDW Coefficient Variation 15.1 % (11.7-14.2); RDW Standard Deviation 54.3 fL (35.1-46.3); Red Blood Cell Count 2.31 M/mm3 (4.30-5.90); White Blood Cell Count 8.28 K/mm3 (4.00-11.30)
[2024-10-04 07:15] LABS: Albumin/Globulin Ratio 0.4 (0.8-1.8); Bilirubin, Total 0.4 mg/dL (0.1-1.0); Bun/Creatinine Ratio 44.6 (12.0-20.0); Calcium, Blood 8.3 mg/dL (8.5-10.1); Creatinine, Blood 1.84 mg/dL (0.60-1.20); Globulin, Blood 4.8 g/dL (2.2-4.0); Potassium, Blood 4.3 mmol/L (3.5-5.5); Total Protein, Blood 6.8 g/dL (6.4-8.2)
[2024-10-04] MEDS ORDERED: OxyCODONE 5 mg/Acetamin 325 mg TABLET PO PRN ×2 (07:40→10:24)
[2024-10-04] MEDS ORDERED: OxyCODONE 10/Acetamin 325 TABLET PO PRN (10:50)
[2024-10-04] MEDS ORDERED: DiphenhydrAMINE HCL 25 MG Cap PO PRN (10:55)
[2024-10-04] MEDS ORDERED: Sod Ferric Gluc Complx/Sucrose 125 MG in NS 100 ML IV SCH (12:00)
[2024-10-04] MEDS ORDERED: Pantoprazole Sodium 40 MG Tab PO SCH (16:30)
[2024-10-05] VITALS (9 sets, daily range): BP systolic 97–131; BP diastolic 53–70
[2024-10-05 05:25] LABS: BASOPHILS ABSOLUTE AUTO 0.03 K/mm3 (0.00-0.23); BASOPHILS PERCENT AUTO 0 % (0-2); EOSINOPHILS ABSOLUTE AUTO 0.24 K/mm3 (0.00-0.68); EOSINOPHILS PERCENT AUTO 2 % (0-6); Hematocrit 22.9 % (37.0-53.0); Hemoglobin 7.1 g/dL (13.5-17.5); IMMATURE GRAN ABSOLUTE AUTO 0.27 K/mm3 (0.00-0.10); IMMATURE GRAN PERCENT AUTO 3 % (0-1); LYMPHOCYTES ABSOLUTE AUTO 1.26 K/mm3 (0.84-5.20); LYMPHOCYTES PERCENT AUTO 13 % (21-46); MONOCYTES ABSOLUTE AUTO 0.95 K/mm3 (0.16-1.47); MONOCYTES PERCENT AUTO 10 % (4-13); Mean Corpuscular HGB 30.6 pg (26.0-34.0); Mean Corpuscular Volume 99 fL (80-100); Mean Platelet Volume 9.5 fL (9.1-12.4); NEUTROPHILS ABSOLUTE AUTO 7.06 K/mm3 (1.96-9.15); NEUTROPHILS PERCENT AUTO 72 % (41-73); NRBC ABSOLUTE 0.02 K/mm3 (0.00-0.02); NRBC Auto 0.2 /100 WBC (0.0-0.2); Platelet Count 315 K/mm3 (150-400); RDW Coefficient Variation 15.2 % (11.7-14.2); RDW Standard Deviation 53.7 fL (35.1-46.3); Red Blood Cell Count 2.32 M/mm3 (4.30-5.90); White Blood Cell Count 9.81 K/mm3 (4.00-11.30)
[2024-10-05 05:57] LABS: Bun/Creatinine Ratio 42.5 (12.0-20.0); Calcium, Blood 8.5 mg/dL (8.5-10.1); Creatinine, Blood 1.81 mg/dL (0.60-1.20)
[2024-10-05] MEDS ORDERED: Bumetanide 1 MG Tab PO SCH (09:00)
[2024-10-05] MEDS ORDERED: Spironolactone 25 MG Tab PO SCH (09:00)
[2024-10-05] MEDS ORDERED: Potassium Chloride 20 MEQ TabCR PO SCH (09:00)
[2024-10-05] MEDS ORDERED: Pantoprazole Sodium 40 MG in NS 50 ML IV SCH (11:05)
[2024-10-05 16:06] LABS: Hematocrit 22.7 % (37.0-53.0)
[2024-10-05] MEDS ORDERED: Bumetanide 0.25 MG/ML 4ML ViaL IV SCH (18:00)
== END 2024-10-05 16:45 | disposition short-term general hospital (02) | DRG 871 ==
LOC: ER 10:29 → ICUE 15:50 → PCU 15:50 → MEDS 15:50 → ICUE 17:43 → PCU 09-27 17:31 → MEDS 10-02 18:06 → PCU 10-05 12:20
PROVIDERS: Hospitalist; Nurse Practitioner Acute Care; Student in an Organized Health Care Education/Training Program; Surgery; ADMIT Internal Medicine
PROC: 3E03329 Introduction of Other Anti-infective into Peripheral Vein, Percutaneous Approach (ICD-10-PCS; 2024-09-19)
PROC: 30233J1 Transfusion of Nonautologous Serum Albumin into Peripheral Vein, Percutaneous Approach (ICD-10-PCS; 2024-09-21)
PROC: 02HV33Z Insertion of Infusion Device into Superior Vena Cava, Percutaneous Approach (ICD-10-PCS; 2024-09-22)
PROC: 3E033XZ Introduction of Vasopressor into Peripheral Vein, Percutaneous Approach (ICD-10-PCS; 2024-09-22)
PROC: 0T9B70Z Drainage of Bladder with Drainage Device, Via Natural or Artificial Opening (ICD-10-PCS; 2024-09-28)
PROC: 0DJ08ZZ Inspection of Upper Intestinal Tract, Via Natural or Artificial Opening Endoscopic (ICD-10-PCS; 2024-09-28)
PROC: 30233N1 Transfusion of Nonautologous Red Blood Cells into Peripheral Vein, Percutaneous Approach (ICD-10-PCS; principal; 2024-09-28 12:00)
DX: A40.0 Sepsis due to streptococcus, group A (principal); A48.3 Toxic shock syndrome; E11.10 Type 2 diabetes mellitus with ketoacidosis without coma; N17.0 Acute kidney failure with tubular necrosis; K26.4 Chronic or unspecified duodenal ulcer with hemorrhage; L03.115 Cellulitis of right lower limb; Z68.43 Body mass index [BMI] 50.0-59.9, adult; E87.1 Hypo-osmolality and hyponatremia; L03.113 Cellulitis of right upper limb; L03.114 Cellulitis of left upper limb; L03.116 Cellulitis of left lower limb; G89.29 Other chronic pain; M25.532 Pain in left wrist; E78.5 Hyperlipidemia, unspecified; G47.33 Obstructive sleep apnea (adult) (pediatric); M25.531 Pain in right wrist; I87.2 Venous insufficiency (chronic) (peripheral); M79.89 Other specified soft tissue disorders; S80.821A Blister (nonthermal), right lower leg, initial encounter; E66.813 Obesity, class 3; E88.09 Other disorders of plasma-protein metabolism, not elsewhere classified; B95.62 Methicillin resistant Staphylococcus aureus infection as the cause of diseases classified elsewhere; S51.801A Unspecified open wound of right forearm, initial encounter; N18.9 Chronic kidney disease, unspecified; I12.9 Hypertensive chronic kidney disease with stage 1 through stage 4 chronic kidney disease, or unspecified chronic kidney disease; R60.1 Generalized edema; M79.631 Pain in right forearm; M79.632 Pain in left forearm; R33.9 Retention of urine, unspecified; R53.81 Other malaise; I48.0 Paroxysmal atrial fibrillation; B02.9 Zoster without complications; Z79.899 Other long term (current) drug therapy; Z90.49 Acquired absence of other specified parts of digestive tract; Z79.4 Long term (current) use of insulin; Z99.89 Dependence on other enabling machines and devices; Z93.2 Ileostomy status; Z79.85 Long-term (current) use of injectable non-insulin antidiabetic drugs; Z79.890 Hormone replacement therapy; Z79.82 Long term (current) use of aspirin; Z79.84 Long term (current) use of oral hypoglycemic drugs; Z87.19 Personal history of other diseases of the digestive system; W18.39XA Other fall on same level, initial encounter
CPT/HCPCS: 36415; 36430; 36569; 51702; 71045; 73070; 73100; 73120; 73130; 73700; 76770; 80048; 80053; 80202; 81001; 82010; 82272; 82330; 82607; 82728; 82746; 82803; 82947; 83036; 83540; 83550; 83605; 83615; 83735; 83880; 84100; 85014; 85018; 85025; 85027; 85049; 85379; 85384; 85520; 85610; 85651; 85730; 86140; 86850; 86900; 86901; 86923; 87040; 87147; 87798; 93005; 93010; 93971; 94660; 94762; 96361; 96374; 97110; 97161; 97166; 97530; 97535; 99285-25; A9270; C1751; C8929; J0330; J0612; J0690; J0692; J0696; J1171; J1200; J1644; J1650; J1815; J1885; J1938; J2185; J2470; J2540; J2704; J2916; J2997; J3010; J3370; J3475; J3480; J7030; J7040; J7042; J7050; J7060; J7120; J7121; P9016; P9047; Q9957

== ENCOUNTER 2024-12-23 12:24 | Emergency (ER) | payer MEDICARE, OTHER ==
[~2024-12-23] VITALS: Ht 182.9 cm; Wt 136.1 kg
[~2024-12-23 12:24] MED LIST: AMLO10 PO; ASPI325 PO; Crestor40 MG PO; DERMACINRX FOL PO; Dyazide 37.5/251 EA PO; EUTHYROX125 MCG PO; FENO48 PO; FISH OIL 1,4001 EAC2 PO; GLUCHON PO; HUMALOG100 UNIT/1 SC; LISI20 PO; METF500 PO; MOUNJARO15 MG/0.5 SC; MULTI-VITAMIN1 EAC2 PO; TRIA50 PO
[2024-12-23] MEDS ORDERED: Albuterol 2.5 MG/3 ML VIAL ONE (12:51)
--- NOTE | 2024-12-23 13:29 | NUR ---
Roel (pt) has as a result of a cardiac arrest. Pt's family members are gathered in ER 4 before being moved to ER 9. Family members openly display strong emotions in the form of tears. One family member abruptly exits and pt's spouse explains that he has been experiencing a deep spiritual disconnect. Provided empathic listening and conducted life review of pt with family members. Provided anticipatory grief education to family members. Pt spouse requested prayer, prayer was provided. Pt's spouse says "we're doing okay" and are concerned with notifying other family members about pt's . Pt's family members thank me for the prayer and visit and appear more calm following the visit.
[2024-12-23 14:45] LABS: Calcium, Ionized (POC) 1.08 mmol/L (1.10-1.46); Chloride (POC) 96 mmol/L (98-108); Creatinine (POC) 13.5 mg/dL (0.8-1.3); Glucose (ISTAT POC) 319 mg/dL (70-99); Hematocrit (POC) 40.0 % (41.0-53.0); Hemoglobin (POC) 13.6 g/dL (13.5-17.5); Potassium (POC) 8.7 mmol/L (3.5-5.5); Sodium (POC) 121 mmol/L (135-148); Total CO2 (POC) 14 mmol/L (21-32)
[2024-12-23] MEDS ORDERED: Magnesium Sulfate 500 MG / ML 2ML Vial XX ONE (17:11)
[2024-12-23] MEDS ORDERED: Sodium Bicarb 8.4% 50 mEq Syringe IV ONE (17:11)
[2024-12-23] MEDS ORDERED: Amiodarone HCl 50 MG / ML 3 ML Amp IV ONE (17:11)
[2024-12-23] MEDS ORDERED: EPINEPhrine HCl 0.1 MG/ML STE Water 10ML SYR XX ONE (17:11)
== END 2024-12-23 17:31 ==
LOC: ER 12:24
PROVIDERS: Student in an Organized Health Care Education/Training Program
DX: I46.9 Cardiac arrest, cause unspecified (principal); J96.90 Respiratory failure, unspecified, unspecified whether with hypoxia or hypercapnia; E87.5 Hyperkalemia; E11.9 Type 2 diabetes mellitus without complications; Z86.73 Personal history of transient ischemic attack (TIA), and cerebral infarction without residual deficits; Z79.82 Long term (current) use of aspirin; Z79.84 Long term (current) use of oral hypoglycemic drugs; Z79.4 Long term (current) use of insulin; Z79.899 Other long term (current) drug therapy
CPT/HCPCS: 80047; 82947; 85014; 99285-25; J0169; J0171; J0282; J3475